=== PATIENT | female | born 1975 | race Caucasian/White ===

== ENCOUNTER 2016-05-05 23:02 | Emergency (ER) | payer OTHER ==
[~2016-05-05] VITALS: Ht 162.6 cm; Wt 118.0 kg
[2016-05-05 23:10] VITALS: BP 132/85; PULSE 93; RESP 20; O2SAT 98
[2016-05-05] MEDS ORDERED: Albuterol 2.5 mg/3 mL Inhalation Solution NEB ONE (23:40)
[2016-05-05] MEDS ORDERED: MethylprednisoLONE Sodium Succinate 62.5 mg/mL 2 mL Inj IVPUSH ONE (23:40)
[2016-05-05] MEDS ORDERED: Albuterol-Ipratropium 3 mL Inhalation Solution NEB ONE (23:40)
[2016-05-05 23:58] LABS: BASOPHILS % (AUTO) 0.4 % (0-3); MONOCYTES % (AUTO) 7.2 % (4-12); Mean Corpuscular Hemoglobin 28.8 pg (27.0-35.0); Mean Corpuscular Volume 86.7 fL (81-100); NEUTROPHILS % (AUTO) 60.8 % (40-74); Platelet Count 261 bil/L (150-400)
[2016-05-06 00:15] VITALS: PULSE 80; RESP 24; O2SAT 100
--- NOTE | 2016-05-06 00:15 | ED.REPORT ---
HPI-Dyspnea / Wheezing Date of Service May 06, 2016 ED Provider: Julio C Johnson DO A 41 year old female with a history of smoking, fibromyalgia, PTSD, bipolar disorder, and recent COPD diagnosis presents to the ED complaining of cough, left-sided chest pain, and shortness of breath. These symptoms have been present for 1.5 weeks. The pt was diagnosed with COPD recently but was not prescribed any medications for her condition. Nursing Notes Stated Complaint: POSS PNEUMONIA Chief Complaint: Respiratory Complaints Nursing Notes Reviewed: Yes Allergies: Coded Allergies: NSAIDS (Non-Steroidal Anti-Inflamma (Verified Allergy, Severe, Hx GI bleed , 03/09/15) morphine (Verified Allergy, Severe, MORAES,N&V, 03/09/15) tramadol (Verified Allergy, Severe, N&V, 03/09/15) ondansetron HCl (Verified Allergy, Intermediate, highly anxious rash, ) Sulfa (Sulfonamide Antibiotics) (Verified Allergy, Unknown, 04/23/14) No Active Prescriptions or Reported Meds General Time Seen by MD: 23:21 Chief Complaint Cough Hx Obtained From: Patient Arrived By: Walk-in Sudden in Onset?: No Onset Occurred: More than a week ago... 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 Physical Exam Initial Vital Signs Vital Signs (First) Date Time Temp Pulse Resp B/P Pulse Ox O2 Delivery O2 Flow Rate FiO2 05/05/16 23:10 36.9 93 20 132/85 98 Room Air Initial VS: Reviewed General/Constitutional: Awake, Alert Neck: Atraumatic, Supple, Full range of motion Respiratory / Chest: Atraumatic, Breath sounds = bilat, No respiratory distress diffuse wheeze and rhonchi Cardiovascular: Heart rate NL, Regular rhythm, Heart sounds NL ENT: Atraumatic, Airway patent, Mucous membranes moist Abdomen: Atraumatic, Soft, Non-tender Back: Atraumatic, Full range of motion Lower Extremity / Pelvis / MS: Atraumatic, Full range of motion Skin: Atraumatic, Color NL, No rash, Warm, Dry Neurologic: Oriented X3, Speech NL, No motor deficits, No sensory deficits Head / Eyes: Atraumatic, Normocephalic, PERRL, EOMI Upper Extremity / MS: Atraumatic, Full range of motion Psychiatric: Affect NL, Mood NL Interpretation & Diagnostics Interpretation & Diagnostics: CT Pulmonary Angiogram: CONCLUSION: Findings suggestive of mild bronchitis, with subsegmental atelectasis within the anterior segment of the right upper lobe and lateral segment of the right upper lobe. Lab Results Interpretation Result Diagram: 05/05/16 2345 05/05/16 2345 Test 05/05/16 23:45 05/06/16 02:25 05/06/16 03:35 White Blood Count 9.2th/mm3 (3.8-10.1) Red Blood Count 3.99mil/mm3 (3.90-5.20) Hemoglobin 11.5g/dL (12.0-15.6) Hematocrit 34.6% (35.0-46.0) Mean Corpuscular Volume 86.7fL (81-100) Mean Corpuscular Hemoglobin 28.8pg (27.0-35.0) Mean Corpuscular Hemoglobin Concent 33.2% (32.0-37.0) Red Cell Distribution Width 12.8% (12.3-15.4) Platelet Count 261bil/L (150-400) Neutrophils (%) (Auto) 60.8% (40-74) Lymphocytes (%) (Auto) 27.2% (14-46) Monocytes (%) (Auto) 7.2% (4-12) Eosinophils (%) (Auto) 4.0% (0-5) Basophils (%) (Auto) 0.4% (0-3) D-Dimer 1.2mg/L (<0.50) Sodium Level 142mEq/L (134-144) Potassium Level 3.3mEq/L (3.5-5.2) Chloride Level 100mEq/L (97-108) Carbon Dioxide Level 24mmol/L (18-29) Blood Urea Nitrogen 16mg/dL (6-24) Creatinine 0.76mg/dL (0.57-1.00) Estimat Glomerular Filtration Rate 120mL/min (>59) Glucose Level 118mg/dL (60-99) Calcium Level 9.2mg/dL (8.5-10.1) Total Bilirubin 0.2mg/dL (0.0-1.2) Aspartate Amino Transf (AST/SGOT) 16U/L (0-50) Alanine Aminotransferase (ALT/SGPT) 20U/L (0-32) Alkaline Phosphatase 79U/L (25-150) Total Protein 7.8g/dL (6.4-8.4) Albumin 3.8g/dL (3.4-5.0) Hold Fitch Top Tube Received (Received) Hold Urine Received (Received) Troponin T 0.010ug/L (0.0-0.011) Pulse Oximetry Interpretation Pulse Oximetry Interpretation: 98% on room air Pulse Oximetry: Pulse Ox normal Pulse Oximetry Interpretation: 100% on room air Pulse Oximetry: Pulse Ox normal Re-Eval/Medical Decision Med Decision/Clinical Course Patient was medicated with DuoNeb's and albuterol. IV steroids were added as well. After these therapeutic she looked and felt great. She had coarse rhonchi but no wheeze. She had no respiratory distress. She was not tachypneic nor hypoxic. Pulmonary emboli was ruled out. Myocardial infarction was ruled out. She has clinical and radiographic bronchitis. As such she will be on a course of anabolic steroids and inhalers. She does not wish to be admitted to the hospital so therefore I will provide her with an inhaler with instructions. Also get her close outpatient follow-up. Source of Hx: Old records Re-Evaluation/Progress : Time of Eval: 03:03 Patient Status: Condition improved Re-Evaluation/Progress Note: Pt rechecked, who is feeling significantly better. Diagnosis and the plan for discharge following repeat troponin are discussed. The pt understands and agrees with the plan. All questions are addressed at this time. Counseled Regarding: Diagnosis, Lab results, Need for follow-up, When/why to return to ED Discharge & Departure Impression: Primary Impression: Bronchitis, acute, with bronchospasm Additional Impressions: Smoking Chronic obstructive bronchitis Disposition: Home Discharge Condition All VS Reviewed: Yes Condition: Stable Patient Instructions: Acute Bronchitis (ED), Asthma (ED) Additional Instructions: The single most important thing you can do for your health is to stop smoking. Try nicotine replacement such as nicotine gum. Your exam and diagnostics are consistent with acute bronchitis and bronchospasm. Finish the Z-Kevin. This is for infection. Prednisone daily for 5 days. This is to help the inflammation in your lungs. Albuterol 2 puffs every 2-3 hours as needed for wheezing and cough. You might need to be on an inhaled steroid as well. You need to be seen Saturday or Saturday in follow-up. Call your doctor Saturday morning. If you are not significantly improved over the weekend or if you have any worsening symptoms then come back to the emergency department for repeat treatments. Again, stopping smoking as most important thing. Do not hesitate to return if any problems or any worsening symptoms. You may take one Eastman every 6 hours for the pain associated with coughing. Do not take this before bed. This can be very sedating so do not take it with any other sedating medications. Do not drive or drink alcohol or consume acetaminophen while taking the Eastman. Referrals: [facility] Scribe Attestation Portions of this note were transcribed by Beto Martinez. I, Dr. Johnson personally performed the history, physical exam and medical decision-making; I reviewed and confirmed the accuracy of the information in the transcribed note. Signed by: Shreyas Cadena, 05/06/2016 and 0338. copies to: [facility] Julio C Johnson DO May 06, 2016 00:15 BETO MARTINEZ May 06, 2016 00:16
[2016-05-06 00:22] LABS: TROPONIN T 0.01 ug/L (0.0-0.011)
[2016-05-06] MEDS ORDERED: cefTRIAXone Inj 2,000 MG in Dextrose 5% Minibag Plus 50 ML IV ONE (02:15)
[2016-05-06] MEDS ORDERED: _Albuterol-HFA 60 Puff Inhaler INHALATION PRN (03:10)
[2016-05-06 04:15] VITALS: BP 114/61; PULSE 91; RESP 21; O2SAT 98
[2016-05-06 04:54] VITALS: BP 125/59; PULSE 100; RESP 24; O2SAT 100
--- NOTE | 2016-05-06 08:13 | DRSVH ---
PROCEDURE: CT ANGIO CHEST PULMONARY EMBOLISM ([id number]) INDICATIONS: respiratory distress, chest pain,elevated ddimer TECHNIQUE: After the administration of intravenous contrast, 2 mm thick sections acquired from the pulmonary api katrin to the posterior costophrenic angles. 3-dimensional maximum intensity projection (MIP) coronal a nd sagittal reformats were then acquired through the thorax. For radiation dose reduction, the follo wing was used: automated exposure control, adjustment of mA and/or kV according to patient size. COMPARISON: [facility], CR, XR CHEST 2VW, 03/09/2015, 21:12. FINDINGS: Image quality: Partially degraded by motion artifact Pulmonary arteries: Pulmonary arteries are normal in size, and demonstrate no intraluminal filling d efects to suggest central pulmonary embolism. Lungs and pleura: Mild right basilar atelectasis versus pneumonia. 2 mm diameter subpleural nodule wi thin the right lung base anterolaterally. Mild patchy opacity within the right upper lobe anteriorly. No pleural effusions or pneumothorax. Central and peripheral airways are patent. Bronchial wall thi ckening within the right middle lobe posterior lung base. Bronchial thickening within the right upper lobe anteriorly. Mediastinum: Heart size is normal, without pericardial effusion. No mediastinal adenopathy. Mildly prominent bilateral hilar lymph nodes. Thoracic aorta is normal in caliber and enhancement. Esophagu s is normal in caliber, without hiatal hernia. Bones and chest wall: No suspicious bony lesions. Ribs and thoracic spine appear intact throughout. Thyroid gland is within normal limits. No axillary or supraclavicular adenopathy. Abdomen: Visualized portions of the upper abdomen demonstrate calculi within the gallbladder lumen IMPRESSION: 1. Multifocal mild patchy right bronchopneumonia with reactive hilar lymph node enlargement. 2. No pulmonary embolus. Dictated by: Andi Huang M.D. on 05/06/2016 at 8:08 Approved by: Andi Huang M.D. on 05/06/2016 at 8:11
== END 2016-05-06 03:17 | disposition home or self-care (01) ==
LOC: SED 23:02
DX: J20.9 Acute bronchitis, unspecified (principal); J44.0 Chronic obstructive pulmonary disease with (acute) lower respiratory infection; R07.9 Chest pain, unspecified; J45.909 Unspecified asthma, uncomplicated; F17.200 Nicotine dependence, unspecified, uncomplicated; Z59.0 Homelessness; Z88.6 Allergy status to analgesic agent; Z88.5 Allergy status to narcotic agent; Z88.2 Allergy status to sulfonamides
CPT/HCPCS: 36415; 71275; 80053; 81025; 84484; 85025; 85379; 87040; 94640; 94644; 96365; 96375; 99285; J0696; J2930; J7613; J7620; Q9967